=== PATIENT | female | born 2000 | race African-American/Black ===

== ENCOUNTER 2019-04-30 15:09 | Emergency (ER) | payer MEDICAID ==
[~2019-04-30] VITALS: Ht 152.4 cm; Wt 50.0 kg
[2019-04-30] MEDS ORDERED: MORPHINE SULFATE 4 MG/ML CPJ (NOT FOR IM USE) IV STA (18:50)
[2019-04-30] MEDS ORDERED: SODIUM CHLORIDE 0.9% 1,000 ML IV ONE (18:50)
[2019-04-30] MEDS ORDERED: ONDANSETRON HCL 4MG/2ML INJ IV STA (18:50)
[2019-04-30 19:36] LABS: CHLORIDE 105 mEq/L (98-107)
[2019-04-30 19:37] LABS: BASOPHILS % 0.2 % (0.0-2.0); EOSINOPHILS % 0.9 % (0.0-5.0); HEMATOCRIT. 37.7 % (36.0-48.0); HEMOGLOBIN. 12.7 g/dL (12.0-16.0); INR 1.1; LYMPHOCYTES % 16.7 % (20.0-50.0); MEAN CORPUSCULAR HEMOGLOBIN 30.9 pg (28.0-32.0); MEAN CORPUSCULAR VOLUME 91.8 fL (81.0-99.0); MONOCYTES % 8.8 % (2.0-8.0); NEUTROPHILS % 73.4 % (40.0-76.0); PLATELET 239 x1000/uL (130-400); PROTHROMBIN TIME 10.9 sec (9.6-11.0); RED CELL DISTRIBUTION WIDTH 13.1 % (11.6-14.6)
[2019-04-30 19:46] LABS: CLARITY URINE CLOUDY (CLEAR); COLOR URINE DARK YELLOW (YELLOW); KETONES URINE 1+ (NEGATIVE); LEUKOCYTE ESTERASE URINE 1+ (NEGATIVE); NITRITE URINE NEGATIVE (NEGATIVE); OCCULT BLOOD URINE NEGATIVE (NEGATIVE); PH URINE 6.5 (4.5-8.0); PROTEIN URINE TRACE (NEGATIVE); SPECIFIC GRAVITY URINE 1.031 (1.005-1.030)
[2019-04-30] MEDS ORDERED: CEFTRIAXONE 1 G PREMIX 50 ML IV ONE (21:00)
[2019-04-30] MEDS ORDERED: POTASSIUM CHLORIDE 20MEQ TABLET SR PO ONE (21:00)
[2019-04-30 22:56] VITALS: BP 97/51
== END 2019-04-30 23:00 | disposition home or self-care (01) ==
LOC: ER 15:09
DX: N12 Tubulo-interstitial nephritis, not specified as acute or chronic (principal)
CPT/HCPCS: 36415; 76705; 80053; 81003; 81025; 83690; 85025; 85610; 96365; 96375; 99284; J0696; J2270; J2405; J7030